=== PATIENT | male | born 1950 ===

== ENCOUNTER 2017-11-15 09:23 | Day surgery (SDC) | payer MEDICARE ==
[2017-11-15 08:08] VITALS: BMI 23.2
[2017-11-15 10:02] LABS: INR 1.1; PROTHROMBIN TIME 12.4 SECONDS (9.7-12.2)
--- NOTE | 2017-11-16 07:04 | HP ---
DATE: 11/15/2017 The patient is a 67-year-old male, who signed against medical advice today from [facility], [place] after he was admitted for pneumonia. The patient's workup included a chest CT scan and echocardiogram. An echocardiographic study was consistent with ischemic cardiomyopathy and chest CT angio revealed 5.1 cm ascending aortic aneurysm. The patient was advised cardiac catheterization, however, he signed against medical advice, and elected to come and have it done as an outpatient. However, during my conversation with him, at the time of clinical consent, the patient was informed that he has to stay overnight after the cardiac catheterization in view of presence of severe aortic stenosis as well as cardiomyopathy and discharging him few hours after cardiac catheterization would not be distended. However, the patient stated that he has to leave because he parked his car somewhere, and that if it stays longer, will be , and the patient was offered to call his friends and family to help him with his issue, however, he states he has nobody that can help him with it, and he has to do with himself, and for that reason, he cannot have the cardiac catheterization today, and he elected to take care of his car first and reschedule his cardiac catheterization procedure. The patient was instructed that if any time he does not feel well, he should call 911. The patient was fully alert, awake, oriented at the time of his decision making. The patient was evaluated thoroughly by me yesterday at [facility], [place]. Clinically, the patient was hemodynamically stable and was not in CHF, and he was chest pain free, was in normal sinus rhythm on the monitor. Best Viramontes MD
== END 2017-11-15 12:30 | disposition home or self-care (01) ==
LOC: C.CATHLAB 09:23
PROVIDERS: ATTEND Specialist
DX: I35.0 Nonrheumatic aortic (valve) stenosis (principal); Z53.09 Procedure and treatment not carried out because of other contraindication

== ENCOUNTER 2017-11-20 00:21 | Inpatient (IN) | payer MEDICARE ==
[2017-11-20 00:21] VITALS: BMI 23.2
[2017-11-20] MEDS ORDERED: Aspirin 325 mg EC Tablets PO STA (00:27)
--- NOTE | 2017-11-20 00:27 | C.PDOC ---
History Of Present Illness 67 year old male presents to the ED c/o worsening SOB that started tonight around at 23:00. Patient was recently admitted to the Hospital last week for pneumonia and CHF. Patient states he is currently taking antibiotics. Patient denies CP, palpitations, weakness, numbness. Patient is speaking in 2-3 word sentences. Time Seen by Provider: 11/20/17 00:26 Chief Complaint (Nursing): Respiratory Distress History Per: Patient History/Exam Limitations: no limitations Onset/Duration Of Symptoms: Hrs Current Symptoms Are (Timing): Worse Quality: "Pain" Exacerbating Factor(s): Exertion, Laying Flat Current Respiratory Medications: See Home Med List Severity: Severe Pain Scale Rating Of: 7 Reports Recently: Seen In ED, Treated By A Physician, Hospitalized (last week for pneumonia and CHF) Recent travel outside of the [place]: No Additional History Per: Patient Past Medical History Reviewed: Historical Data, Nursing Documentation, Vital Signs Vital Signs: Last Vital Signs Temp 98.2 F 11/20/17 01:04 Pulse 100 H 11/20/17 01:04 Resp 20 11/20/17 01:04 BP 111/82 11/20/17 01:04 Pulse Ox 100 11/20/17 01:04 - Medical History PMH: CHF (OCTOBER 2017), Pneumonia (NOV 11 2017) Denies: Chronic Kidney Disease Surgical History: No Surg Hx Family History: States: Unknown Family Hx - Social History Hx Alcohol Use: No Hx Substance Use: No Review Of Systems Constitutional: Negative for: Fever, Chills Eyes: Negative for: Vision Change ENT: Negative for: Throat Pain Cardiovascular: Negative for: Chest Pain Respiratory: Positive for: Cough, Shortness of Breath Gastrointestinal: Negative for: Nausea, Vomiting Genitourinary: Negative for: Dysuria Musculoskeletal: Negative for: Back Pain Skin: Negative for: Rash Neurological: Negative for: Weakness, Numbness, Headache Psych: Positive for: Anxiety Physical Exam - Physical Exam Appears: In Acute Distress Skin: Warm, Dry Head: Normacephalic Eye(s): bilateral: Normal Inspection Oral Mucosa: Moist Neck: Supple Chest: Symmetrical Cardiovascular: Rhythm Regular Respiratory: Decreased Breath Sounds, Rales (diffuse), No Rhonchi, No Wheezing Gastrointestinal/Abdominal: Soft, No Tenderness, No Guarding, No Rebound Back: Normal Inspection Extremity: Pedal Edema (trace), Capillary Refill (< 2 seconds) Extremity: Bilateral: Atraumatic, Normal Color And Temperature Pulses: Left Dorsalis Pedis: Normal, Right Dorsalis Pedis: Normal Neurological/Psych: Oriented x3, Normal Speech Gait: Steady ED Course And Treatment - Laboratory Results Result Diagrams: 11/20/17 00:35 11/20/17 00:35 Progress Note: Plan: - EKG. - VBG. - LAbs. - CXR. - Aspirin 325 mg PO. - Lasix 40 mg PO. - Blood culture Critical Care Time - Critical Care Note Total Time (in mins): 30 Documented critical care: time excludes all time spent performing seperately billable procedures. Disposition Discussed With Dr.: Chris Pandya Comment: accepted the patient onhis service and took over the care 1:39 AM Doctor Will See Patient In The: ED Counseled Patient/Family Regarding: Studies Performed, Diagnosis - Disposition Disposition: HOSPITALIZED Disposition Time: 00:26 Condition: FAIR Forms: [facility] (Uzbek) - Clinical Impression Clinical Impression: Respiratory distress, Acute pulmonary edema - Scribe Statement The provider has reviewed the documentation as recorded by the Scribe Geovani Connor All medical record entries made by the Scribe were at my direction and personally dictated by me. I have reviewed the chart and agree that the record accurately reflects my personal performance of the history, physical exam, medical decision making, and the department course for this patient. I have also personally directed, reviewed, and agree with the discharge instructions and disposition. Decision To Admit - Pt Status Changed To: Hospital Disposition Of: Inpatient - Admit Certification Admit to Inpatient:: After my assessment, the patient will require hospitalization for at least two midnights. This is because of the severity of symptoms shown, intensity of services needed, and/or the medical risk in this patient being treated as an outpatient. - InPatient: Physician Admission Certification: I certify that this patient requires 2 or more midnights of care for the following reason:: After my assessment, the patient will require hospitalization for at least two midnights. This is because of the severity of symptoms shown, intensity of services needed, and/or the medical risk in this patient being treated as an outpatient. - . Bed Request Type: Telemetry Admitting Physician: Chris Pandya Patient Diagnosis: Respiratory distress, Acute pulmonary edema
[2017-11-20 00:35] LABS: VENOUS BLOOD GAS BASE EXCESS -2.4 mmol/L (0.0-2.0); VENOUS BLOOD GAS PCO2 50 mmHg (40-60); VENOUS BLOOD GAS PO2 32 mm/Hg (30-55)
[2017-11-20 00:38] LABS: BASO # 0.2 K/uL (0.0-0.2); BASO % 1.3 % (0.0-2.0); EOS # 0.4 K/uL (0.0-0.7); EOS % 3.5 % (0.0-4.0); LYMPH # 3.7 K/uL (1.0-4.3); LYMPH % 28.7 % (20.0-40.0); MEAN CELL VOLUME 83.7 fL (80.0-94.0); MEAN CORPUSCULAR HEMOGLOBIN 27.7 pg (27.0-31.0); MEAN CORPUSCULAR HGB CONC 33.1 g/dL (33.0-37.0); MEAN PLATELET VOLUME 9.9 fL (7.2-11.7); MONO # 0.7 K/uL (0.0-0.8); MONO % 5.4 % (0.0-10.0); NEUT # 7.9 K/uL (1.8-7.0); NEUT % 61.1 % (50.0-75.0); NRBC % 0.1 % (0.0-2.0); RBC 5.05 Mil/uL (4.40-5.90); RED CELL DISTRIBUTION WIDTH 15.5 % (11.5-14.5); WHITE BLOOD COUNT 12.8 K/uL (4.8-10.8)
[2017-11-20] MEDS ORDERED: Aspirin 325 mg EC Tablets PO ONE (00:39)
[2017-11-20 00:51] LABS: INR 1.1; PROTHROMBIN TIME 12.4 SECONDS (9.7-12.2)
[2017-11-20 00:55] LABS: CALCIUM 9.4 mg/dl (8.6-10.4); GFR AFRICAN-AMERICAN > 60; GFR NON-AFRICAN AMERICAN > 60
[2017-11-20 01:05] LABS: B-TYPE NATRIURETIC PEPTIDE 2740 pg/mL (0-900)
[2017-11-20 01:08] LABS: ALB/GLOB RATIO 1.4 (1.0-2.1); ALBUMIN 4.8 g/dL (3.5-5.0); ALT/SGPT 27 U/L (21-72); AST/SGOT 38 U/L (17-59); BLOOD UREA NITROGEN 22 mg/dL (9-20)
--- NOTE | 2017-11-20 02:26 | CP.PCM.HP ---
<Raul Schmitt - Last Filed: 11/20/17 05:49> History of Present Illness - History of Present Illness History of Present Illness: This is a 67 yo male, originally from [facility], with past medical hx of heart failure with reduced ef, ascending aortic aneurysm, aortic stenois, presenting to ER with chief complaint of sob. SOB has been going on for roughly 3 hrs. This has happened before. He was in [facility] 1 week before with similar complaint and diagnosed with pneumonia and heart failure. He was due for a cardiac cath but he left AMA. He was seen by Dr. Malone. He is with his today. He says he wants to stay. He denies stress test or cardiac cath in the past. He has been taking abx pills but he did not peanut picker any other meds he was supposed to take. He also reports cough. Before this year, he has never had any sob. He has never had a colonoscopy. He denies smoking hx but says he did have a lot of second hand exposure owing to his father. He denies cp, palpitations. He denies fevers, chills. He denies leg swelling. He denies any bleeding. He denies vomiting. He does admit to some diarrhea which he attributes to his abx. He has not been on ever any pumps or inhalers or nebulizers at home. He says he saw PMD Dr. Harmon once very quickly but otherwise he has not been following with a primary. PMD: [facility] None on a regular basis Code status: full code PMH: aortic stenosis, ascending aortic aneurysm, heart failure with reduced ef PSH: sx to right hand Home meds: levaquin 500 mg po daily Allergies: NKDA FH: mother- living- DM -father- - pneumonia Social hx: does not smoke. social drinker. denies drug use. Born in [facility]. Retired. Worked in [employer] Insurance: medicare part A Present on Admission - Present on Admission Any Indicators Present on Admission: No History of DVT/PE: No History of Uncontrolled Diabetes: No Urinary Catheter: No Decubitus Ulcer Present: No Review of Systems - Constitutional Constitutional: absent: Chills, Fever - EENT Eyes: absent: Blurred Vision, Change in Vision Nose/Mouth/Throat: absent: Post Nasal Drip, Sore Throat, Neck Pain - Cardiovascular Cardiovascular: Dyspnea. absent: Chest Pain, Chest Pain at Rest, Diaphoresis - Respiratory Respiratory: Cough, Dyspnea. absent: Hemoptysis - Gastrointestinal Gastrointestinal: Diarrhea. absent: Nausea, Vomiting - Genitourinary Genitourinary: absent: Change in Urinary Stream, Difficulty Urinating - Musculoskeletal Musculoskeletal: absent: Back Pain, Numbness, Tingling - Integumentary Integumentary: absent: Bleeding Lesions, Changing Lesions - Neurological Neurological: absent: Abnormal Gait, Abnormal Movements, Tingling, Weakness - Psychiatric Psychiatric: absent: Anxiety, Depression - Endocrine Endocrine: absent: Palpitations, Polyuria - Hematologic/Lymphatic Hematologic: absent: Easy Bleeding, Easy Bruising Past Patient History - Infectious Disease Hx of Infectious Diseases: None - Tetanus Immunizations Tetanus Immunization: Unknown - Past Medical History & Family History Past Medical History?: Yes Pertinent Family History: DM, PNA in family - Past Social History Smoking Status: Never Smoked Chewing Tobacco Use: No Cigar Use: No Alcohol: Social Drugs: Denies Home Situation {Lives}: With Family Domestic Violence: Negative - CARDIAC Hx Congestive Heart Failure: Yes (OCTOBER 2017) - PULMONARY Hx Pneumonia: Yes (NOV 11 2017) - NEUROLOGICAL Hx Neurological Disorder: No - HEENT Hx HEENT Problems: Yes (SEASONAL ALLERGIES) - RENAL Hx Chronic Kidney Disease: No - ENDOCRINE/METABOLIC Hx Endocrine Disorders: No - HEMATOLOGICAL/ONCOLOGICAL Hx Blood Disorders: No - INTEGUMENTARY Hx Dermatological Problems: No - MUSCULOSKELETAL/RHEUMATOLOGICAL Hx Musculoskeletal Disorders: No Hx Falls: No - GASTROINTESTINAL Hx Gastrointestinal Disorders: No - GENITOURINARY/GYNECOLOGICAL Hx Genitourinary Disorders: No - PSYCHIATRIC Hx Substance Use: No - SURGICAL HISTORY Hx Surgeries: Yes Hx Musculoskeletal Surgery: Yes (HAND SX) - ANESTHESIA Hx Anesthesia: Yes Hx Anesthesia Reactions: No Hx Malignant Hyperthermia: No Meds Allergies/Adverse Reactions: Allergies Allergy/AdvReac Type Severity Reaction Status Date / Time apple Allergy Intermediate SWELLING Verified 11/20/17 00:27 pear Allergy Intermediate SWELLING Verified 11/20/17 00:27 strawberry Allergy Intermediate SWELLING Verified 11/20/17 00:27 grape Allergy SWELLING Verified 11/20/17 00:27 seasonal Allergy ITCHING Uncoded 11/20/17 00:27 Physical Exam - Constitutional Appears: Non-toxic, No Acute Distress - Head Exam Head Exam: ATRAUMATIC, NORMAL INSPECTION, NORMOCEPHALIC - Eye Exam Eye Exam: EOMI - ENT Exam ENT Exam: Mucous Membranes Moist - Respiratory Exam Respiratory Exam: Rales. absent: Respiratory Distress - Cardiovascular Exam Cardiovascular Exam: REGULAR RHYTHM, +S1, +S2, Systolic Murmur - GI/Abdominal Exam GI & Abdominal Exam: Normal Bowel Sounds, Soft. absent: Tenderness - Extremities Exam Extremities exam: Positive for: full ROM, normal inspection - Back Exam Back exam: NORMAL INSPECTION - Neurological Exam Neurological exam: Alert, CN II-XII Intact, Oriented x3 - Psychiatric Exam Psychiatric exam: Normal Affect, Normal Mood - Skin Skin Exam: Dry, Intact, Normal Color, Warm Results - Vital Signs Recent Vital Signs: Last Vital Signs Temp 98.2 F 11/20/17 01:04 Pulse 100 H 11/20/17 01:04 Resp 20 11/20/17 01:04 BP 111/82 11/20/17 01:04 Pulse Ox 100 11/20/17 01:04 - Labs Result Diagrams: 11/20/17 00:35 11/20/17 00:35 Labs: Laboratory Results - last 24 hr 11/20/17 11/20/17 11/20/17 00:30 00:35 00:35 WBC 12.8 H RBC 5.05 Hgb 14.0 Hct 42.3 MCV 83.7 MCH 27.7 MCHC 33.1 RDW 15.5 H Plt Count 345 MPV 9.9 Neut % (Auto) 61.1 Lymph % (Auto) 28.7 [place] % (Auto) 5.4 Eos % (Auto) 3.5 Baso % (Auto) 1.3 Neut # (Auto) 7.9 H Lymph # (Auto) 3.7 [place] # (Auto) 0.7 Eos # (Auto) 0.4 Baso # (Auto) 0.2 PT 12.4 H INR 1.1 APTT 30 pO2 32 VBG pH 7.30 L VBG pCO2 50 VBG HCO3 21.9 VBG Total CO2 26.1 VBG O2 Sat (Calc) 54.5 VBG Base Excess -2.4 L VBG Potassium 4.2 Sodium 138.0 Chloride 102.0 Glucose 208 H Lactate 2.2 H Potassium Carbon Dioxide Anion Gap BUN Creatinine Est GFR ( Amer) Est GFR (Non-Af Amer) Random Glucose Calcium Total Bilirubin AST ALT Alkaline Phosphatase Troponin I NT-Pro-B Natriuret Pep Total Protein Albumin Globulin Albumin/Globulin Ratio Venous Blood Potassium 4.2 11/20/17 00:35 WBC RBC Hgb Hct MCV MCH MCHC RDW Plt Count MPV Neut % (Auto) Lymph % (Auto) [place] % (Auto) Eos % (Auto) Baso % (Auto) Neut # (Auto) Lymph # (Auto) [place] # (Auto) Eos # (Auto) Baso # (Auto) PT INR APTT pO2 VBG pH VBG pCO2 VBG HCO3 VBG Total CO2 VBG O2 Sat (Calc) VBG Base Excess VBG Potassium Sodium 139 Chloride 103 Glucose Lactate Potassium 5.2 Carbon Dioxide 22 Anion Gap 20 BUN 22 H Creatinine 1.1 Est GFR ( Amer) > 60 Est GFR (Non-Af Amer) > 60 Random Glucose 201 H Calcium 9.4 Total Bilirubin 1.1 AST 38 ALT 27 Alkaline Phosphatase 67 Troponin I 0.0220 NT-Pro-B Natriuret Pep 2740 H Total Protein 8.1 Albumin 4.8 Globulin 3.3 Albumin/Globulin Ratio 1.4 Venous Blood Potassium Assessment & Plan - Assessment and Plan (Free Text) Assessment: This is a 67 yo male, originally from [facility], with heart failure with reduced ejection fraction, ascending aortic aneurysm, mitral regurg, htn with 1. Acute pulmonary edema CXR shows acute pulmonary edema -trops x 3 -BNP elevated -lasix 40 mg IV bid -cardio consult. Dr. Malone. recs appreciated -likely needs cardiac cath -asa 81 mg po daily -VBG shows lactate 2.2 and ph 7.30 -repeat lactate -pt condition: fair 2. Aortic stenosis -coreg 3.125 mg po bid- holding for now because of aortic stenosis, symptomatic and sob -[facility] -recent echo: October 2017: severe aortic stenosis; moderate mitral regurgitation; EF 30-35 percent with impaired LV function 3. hx of ascending aortic aneurysm -cardio consult. Dr. Malone. recs appreciated. -continue to monitor 4. hx of htn -continue lisinopril 5 mg po daily 5. hx of CAP -restart rocephin 1 g IV daily -restart azithromycin 500 mg iv daily -blood cultures pending -pt afebrile -procal pending -does have some leukocytosis 5. GI/DVT ppx -protonix 40 mg iv daily -lovenox 40 mg sc daily -heart healthy diet discussed with Dr. Pandya <Chris Pandya - Last Filed: 11/20/17 06:22> Results - Vital Signs Recent Vital Signs: Last Vital Signs Temp 98.1 F 11/20/17 06:09 Pulse 106 H 11/20/17 06:09 Resp 16 11/20/17 06:09 BP 94/64 L 11/20/17 06:09 Pulse Ox 99 11/20/17 06:09 - Labs Result Diagrams: 11/20/17 06:13 11/20/17 00:35 Labs: Laboratory Results - last 24 hr 11/20/17 11/20/17 11/20/17 00:30 00:35 00:35 WBC 12.8 H RBC 5.05 Hgb 14.0 Hct 42.3 MCV 83.7 MCH 27.7 MCHC 33.1 RDW 15.5 H Plt Count 345 MPV 9.9 Neut % (Auto) 61.1 Lymph % (Auto) 28.7 [place] % (Auto) 5.4 Eos % (Auto) 3.5 Baso % (Auto) 1.3 Neut # (Auto) 7.9 H Lymph # (Auto) 3.7 [place] # (Auto) 0.7 Eos # (Auto) 0.4 Baso # (Auto) 0.2 PT 12.4 H INR 1.1 APTT 30 pO2 32 VBG pH 7.30 L VBG pCO2 50 VBG HCO3 21.9 VBG Total CO2 26.1 VBG O2 Sat (Calc) 54.5 VBG Base Excess -2.4 L VBG Potassium 4.2 Sodium 138.0 Chloride 102.0 Glucose 208 H Lactate 2.2 H Potassium Carbon Dioxide Anion Gap BUN Creatinine Est GFR ( Amer) Est GFR (Non-Af Amer) Random Glucose Calcium Total Bilirubin AST ALT Alkaline Phosphatase Troponin I NT-Pro-B Natriuret Pep Total Protein Albumin Globulin Albumin/Globulin Ratio Venous Blood Potassium 4.2 11/20/17 11/20/17 00:35 06:13 WBC 10.7 RBC 4.81 Hgb 13.4 Hct 39.6 MCV 82.2 MCH 27.9 MCHC 34.0 RDW 15.4 H Plt Count 267 MPV 9.7 Neut % (Auto) 78.0 H Lymph % (Auto) 13.6 L [place] % (Auto) 6.5 Eos % (Auto) 1.1 Baso % (Auto) 0.8 Neut # (Auto) 8.4 H Lymph # (Auto) 1.5 [place] # (Auto) 0.7 Eos # (Auto) 0.1 Baso # (Auto) 0.1 PT INR APTT pO2 VBG pH VBG pCO2 VBG HCO3 VBG Total CO2 VBG O2 Sat (Calc) VBG Base Excess VBG Potassium Sodium 139 Chloride 103 Glucose Lactate Potassium 5.2 Carbon Dioxide 22 Anion Gap 20 BUN 22 H Creatinine 1.1 Est GFR ( Amer) > 60 Est GFR (Non-Af Amer) > 60 Random Glucose 201 H Calcium 9.4 Total Bilirubin 1.1 AST 38 ALT 27 Alkaline Phosphatase 67 Troponin I 0.0220 NT-Pro-B Natriuret Pep 2740 H Total Protein 8.1 Albumin 4.8 Globulin 3.3 Albumin/Globulin Ratio 1.4 Venous Blood Potassium Assessment & Plan - Date & Time Date: 11/20/17 (I have seen and examined the patient. I agree with the findings and plan of care as documented by Dr. Schmitt. Patient with acute pulmonary edema. Previously treated for pneumonia. Left AMA before entirely treated. Rocephin and Azithromycin. Lasix IV. Also with history of aortic aneurysm. Consult to Cardio. Monitor for acute changes.) Time: 06:20 Attending/Attestation - Attestation I have personally seen and examined this patient.: Yes I have fully participated in the care of the patient.: Yes I have reviewed all pertinent clinical information: Yes
[2017-11-20 06:16] LABS: BASO # 0.1 K/uL (0.0-0.2); BASO % 0.8 % (0.0-2.0); EOS # 0.1 K/uL (0.0-0.7); EOS % 1.1 % (0.0-4.0); HEMOGLOBIN 13.4 g/dL (12.0-18.0); LYMPH # 1.5 K/uL (1.0-4.3); LYMPH % 13.6 % (20.0-40.0); MEAN CELL VOLUME 82.2 fL (80.0-94.0); MEAN CORPUSCULAR HEMOGLOBIN 27.9 pg (27.0-31.0); MEAN PLATELET VOLUME 9.7 fL (7.2-11.7); MONO # 0.7 K/uL (0.0-0.8); MONO % 6.5 % (0.0-10.0); NEUT # 8.4 K/uL (1.8-7.0); RBC 4.81 Mil/uL (4.40-5.90); RED CELL DISTRIBUTION WIDTH 15.4 % (11.5-14.5); WHITE BLOOD COUNT 10.7 K/uL (4.8-10.8)
[2017-11-20 06:49] LABS: CK-MB 1.45 ng/mL (0.0-3.38)
--- NOTE | 2017-11-20 08:37 | CP.PCM.PN ---
Objective - Vital Signs/Intake and Output Vital Signs (last 24 hours): Temp Pulse Resp BP Pulse Ox 97.7 F 71 14 85/54 L 95 11/20/17 08:00 11/20/17 08:10 11/20/17 08:05 11/20/17 08:06 11/20/17 08:05 Intake and Output: 11/20/17 11/20/17 06:59 18:59 Intake Total 50 0 Output Total 2009 -1959 0 - Medications Medications: Current Medications Aspirin (Aspirin Chewable) 81 mg PO DAILY [facility] Enoxaparin Sodium (Lovenox) 40 mg SC DAILY [facility] Furosemide (Lasix) 40 mg IVP BID [facility] Heparin Sodium (Porcine) (Heparin) 5,000 units SC Q8 [facility] Ceftriaxone Sodium 1 gm/ (Sodium Chloride) 100 mls @ 100 mls/hr IVPB DAILY [facility] PRN Reason: Protocol Azithromycin 500 mg/ Sodium (Chloride) 250 mls @ 250 mls/hr IVPB DAILY [facility] PRN Reason: Protocol Lisinopril (Zestril) 2.5 mg PO DAILY [facility] Pantoprazole Sodium (Protonix Inj) 40 mg IVP DAILY [facility] - Labs Labs: 11/20/17 06:13 PT 12.4 SECONDS (9.7-12.2) H 11/20/17 00:35 INR 1.1 11/20/17 00:35 APTT 30 SECONDS (21-34) 11/20/17 00:35
--- NOTE | 2017-11-20 08:51 | RAD ---
PROCEDURE: CHEST RADIOGRAPH, 1 VIEW HISTORY: SOB COMPARISON: None available. FINDINGS: LUNGS: Clear. PLEURA: Trace left pleural effusion not excluded. None is seen at the right. No pneumothorax bilaterally. CARDIOVASCULAR: Mildly prominent cardiac silhouette is appreciated though an element of technical magnification is likely in effect to some degree. Moderate pulmonary vascular congestion appreciated. OSSEOUS STRUCTURES: No significant abnormalities. VISUALIZED UPPER ABDOMEN: Normal. OTHER FINDINGS: None. IMPRESSION: Active CHF apparent. Trace left pleural effusion noted.
[2017-11-20 09:15] LABS: ALB/GLOB RATIO 1.3 (1.0-2.1); ALBUMIN 3.9 g/dL (3.5-5.0); ALT/SGPT 33 U/L (21-72); AST/SGOT 39 U/L (17-59); BLOOD UREA NITROGEN 23 mg/dL (9-20); CALCIUM 9.7 mg/dl (8.6-10.4); GFR AFRICAN-AMERICAN > 60; GFR NON-AFRICAN AMERICAN > 60
[2017-11-20] MEDS: Enoxaparin 40 mg Syringe SC SCH (09:41)
[2017-11-20] MEDS: Azithromycin 500 MG in Sodium Chloride 0.9% 250 ML IVPB SCH (09:56)
--- NOTE | 2017-11-20 11:54 | CP.PCM.PCO ---
Physician Communication Note - Physician Communication Note Physician Communication Note: Patient has been transferred to [facility]'s Service. Thank you.
[2017-11-20 12:34] LABS: CK-MB 1.41 ng/mL (0.0-3.38); TROPONIN I 0.093 ng/mL (0.00-0.120)
--- NOTE | 2017-11-20 22:36 | CP.PCM.HP ---
History of Present Illness - History of Present Illness History of Present Illness: This is a 67 yo male, originally from [facility], with past medical hx of heart failure with reduced ef, ascending aortic aneurysm, aortic stenois, presenting to ER with chief complaint of sob. SOB has been going on for roughly 3 hrs. This has happened before. He was in [facility] 1 week before with similar complaint and diagnosed with pneumonia and heart failure. He was due for a cardiac cath but he left AMA. He was seen by Dr. Malone. He is with his today. He says he wants to stay. He denies stress test or cardiac cath in the past. He has been taking abx pills but he did not supervisor opening and picking any other meds he was supposed to take. He also reports cough. Before this year, he has never had any sob. He has never had a colonoscopy. He denies smoking hx but says he did have a lot of second hand exposure owing to his father. He denies cp, palpitations. He denies fevers, chills. He denies leg swelling. He denies any bleeding. He denies vomiting. He does admit to some diarrhea which he attributes to his abx. He has not been on ever any pumps or inhalers or nebulizers at home. He says he saw PMD Dr. Harmon once very quickly but otherwise he has not been following with a primary. PMD: [facility] None on a regular basis Code status: full code PMH: aortic stenosis, ascending aortic aneurysm, heart failure with reduced ef PSH: sx to right hand Home meds: levaquin 500 mg po daily Allergies: NKDA Past Patient History - Infectious Disease Hx of Infectious Diseases: None - Tetanus Immunizations Tetanus Immunization: Unknown - Past Medical History & Family History Past Medical History?: Yes - Past Social History Smoking Status: Never Smoked - CARDIAC Hx Cardiac Disorders: Yes Hx Congestive Heart Failure: Yes (OCTOBER 2017) - PULMONARY Hx Respiratory Disorders: Yes Hx Pneumonia: Yes (NOV 11 2017) - NEUROLOGICAL Hx Neurological Disorder: No - HEENT Hx HEENT Problems: Yes (SEASONAL ALLERGIES) - RENAL Hx Chronic Kidney Disease: No - ENDOCRINE/METABOLIC Hx Endocrine Disorders: No - HEMATOLOGICAL/ONCOLOGICAL Hx Blood Disorders: No - INTEGUMENTARY Hx Dermatological Problems: No - MUSCULOSKELETAL/RHEUMATOLOGICAL Hx Musculoskeletal Disorders: No Hx Falls: No - GASTROINTESTINAL Hx Gastrointestinal Disorders: No - GENITOURINARY/GYNECOLOGICAL Hx Genitourinary Disorders: No - PSYCHIATRIC Hx Psychophysiologic Disorder: No Hx Substance Use: No - SURGICAL HISTORY Hx Surgeries: Yes Hx Musculoskeletal Surgery: Yes (HAND SX) - ANESTHESIA Hx Anesthesia: Yes Hx Anesthesia Reactions: No Hx Malignant Hyperthermia: No Has any member of the family had a problem w/ anesthesia?: No Meds Allergies/Adverse Reactions: Allergies Allergy/AdvReac Type Severity Reaction Status Date / Time apple Allergy Intermediate SWELLING Verified 11/20/17 00:27 pear Allergy Intermediate SWELLING Verified 11/20/17 00:27 strawberry Allergy Intermediate SWELLING Verified 11/20/17 00:27 grape Allergy SWELLING Verified 11/20/17 00:27 seasonal Allergy ITCHING Uncoded 11/20/17 00:27 Results - Vital Signs Recent Vital Signs: Last Vital Signs Temp 98.2 F 11/20/17 15:27 Pulse 79 11/20/17 19:00 Resp 16 11/20/17 19:00 BP 93/61 L 11/20/17 18:30 Pulse Ox 99 11/20/17 19:00 - Labs Result Diagrams: 11/20/17 06:13 11/20/17 06:12 Labs: Laboratory Results - last 24 hr 11/20/17 11/20/17 11/20/17 00:30 00:35 00:35 WBC 12.8 H RBC 5.05 Hgb 14.0 Hct 42.3 MCV 83.7 MCH 27.7 MCHC 33.1 RDW 15.5 H Plt Count 345 MPV 9.9 Neut % (Auto) 61.1 Lymph % (Auto) 28.7 [place] % (Auto) 5.4 Eos % (Auto) 3.5 Baso % (Auto) 1.3 Neut # (Auto) 7.9 H Lymph # (Auto) 3.7 [place] # (Auto) 0.7 Eos # (Auto) 0.4 Baso # (Auto) 0.2 PT 12.4 H INR 1.1 APTT 30 pO2 32 VBG pH 7.30 L VBG pCO2 50 VBG HCO3 21.9 VBG Total CO2 26.1 VBG O2 Sat (Calc) 54.5 VBG Base Excess -2.4 L VBG Potassium 4.2 Sodium 138.0 Chloride 102.0 Glucose 208 H Lactate 2.2 H Potassium Carbon Dioxide Anion Gap BUN Creatinine Est GFR ( Amer) Est GFR (Non-Af Amer) Random Glucose Hemoglobin A1c Lactic Acid Calcium Total Bilirubin AST ALT Alkaline Phosphatase Total Creatine Kinase CK-MB (Mass) Troponin I NT-Pro-B Natriuret Pep Total Protein Albumin Globulin Albumin/Globulin Ratio Triglycerides Cholesterol LDL Cholesterol Direct HDL Cholesterol Procalcitonin Free T4 TSH 3rd Generation Venous Blood Potassium 4.2 11/20/17 11/20/17 11/20/17 00:35 06:12 06:12 WBC RBC Hgb Hct MCV MCH MCHC RDW Plt Count MPV Neut % (Auto) Lymph % (Auto) [place] % (Auto) Eos % (Auto) Baso % (Auto) Neut # (Auto) Lymph # (Auto) [place] # (Auto) Eos # (Auto) Baso # (Auto) PT INR APTT pO2 VBG pH VBG pCO2 VBG HCO3 VBG Total CO2 VBG O2 Sat (Calc) VBG Base Excess VBG Potassium Sodium 139 Cancelled Chloride 103 Cancelled Glucose Lactate Potassium 5.2 Cancelled Carbon Dioxide 22 Cancelled Anion Gap 20 Cancelled BUN 22 H Cancelled Creatinine 1.1 Est GFR ( Amer) > 60 Cancelled Est GFR (Non-Af Amer) > 60 Cancelled Random Glucose 201 H Cancelled Hemoglobin A1c 5.6 Lactic Acid Calcium 9.4 Cancelled Total Bilirubin 1.1 Cancelled AST 38 Cancelled ALT 27 Cancelled Alkaline Phosphatase 67 Cancelled Total Creatine Kinase CK-MB (Mass) Troponin I 0.0220 NT-Pro-B Natriuret Pep 2740 H Total Protein 8.1 Cancelled Albumin 4.8 Cancelled Globulin 3.3 Cancelled Albumin/Globulin Ratio 1.4 Cancelled Triglycerides 66 Cholesterol 132 LDL Cholesterol Direct 86 HDL Cholesterol 36 Procalcitonin Free T4 TSH 3rd Generation 2.24 Venous Blood Potassium 11/20/17 11/20/17 11/20/17 06:12 06:12 06:12 WBC RBC Hgb Hct MCV MCH MCHC RDW Plt Count MPV Neut % (Auto) Lymph % (Auto) [place] % (Auto) Eos % (Auto) Baso % (Auto) Neut # (Auto) Lymph # (Auto) [place] # (Auto) Eos # (Auto) Baso # (Auto) PT INR APTT pO2 VBG pH VBG pCO2 VBG HCO3 VBG Total CO2 VBG O2 Sat (Calc) VBG Base Excess VBG Potassium Sodium Chloride Glucose Lactate Potassium Carbon Dioxide Anion Gap BUN Creatinine Est GFR ( Amer) Est GFR (Non-Af Amer) Random Glucose Hemoglobin A1c Lactic Acid 0.9 Calcium Total Bilirubin AST ALT Alkaline Phosphatase Total Creatine Kinase CK-MB (Mass) Troponin I NT-Pro-B Natriuret Pep Total Protein Albumin Globulin Albumin/Globulin Ratio Triglycerides Cholesterol LDL Cholesterol Direct HDL Cholesterol Procalcitonin 0.13 L Free T4 1.25 TSH 3rd Generation Venous Blood Potassium 11/20/17 11/20/17 11/20/17 06:12 06:13 12:03 WBC 10.7 RBC 4.81 Hgb 13.4 Hct 39.6 MCV 82.2 MCH 27.9 MCHC 34.0 RDW 15.4 H Plt Count 267 MPV 9.7 Neut % (Auto) 78.0 H Lymph % (Auto) 13.6 L [place] % (Auto) 6.5 Eos % (Auto) 1.1 Baso % (Auto) 0.8 Neut # (Auto) 8.4 H Lymph # (Auto) 1.5 [place] # (Auto) 0.7 Eos # (Auto) 0.1 Baso # (Auto) 0.1 PT INR APTT pO2 VBG pH VBG pCO2 VBG HCO3 VBG Total CO2 VBG O2 Sat (Calc) VBG Base Excess VBG Potassium Sodium 140 Chloride 102 Glucose Lactate Potassium 4.7 Carbon Dioxide 28 Anion Gap 15 BUN 23 H Creatinine 1.0 Est GFR ( Amer) > 60 Est GFR (Non-Af Amer) > 60 Random Glucose 104 Hemoglobin A1c Lactic Acid Calcium 9.7 Total Bilirubin 1.0 AST 39 ALT 33 Alkaline Phosphatase 50 Total Creatine Kinase 49 L 46 L CK-MB (Mass) 1.45 1.41 Troponin I 0.0560 0.0930 NT-Pro-B Natriuret Pep Total Protein 6.9 Albumin 3.9 Globulin 3.0 Albumin/Globulin Ratio 1.3 Triglycerides Cholesterol LDL Cholesterol Direct HDL Cholesterol Procalcitonin Free T4 TSH 3rd Generation Venous Blood Potassium
--- NOTE | 2017-11-20 23:35 | CON ---
DATE: REASON FOR CONSULTATION: Congestive heart failure, aortic stenosis, and ascending aortic aneurysm. HISTORY OF PRESENT ILLNESS: The patient is 67 years old male who was admitted recently to [facility] and was diagnosed with severe aortic stenosis, ischemic cardiomyopathy, and 5.1 cm ascending aortic aneurysm, and the patient was advised cardiac catheterization. He signed against medical advice from [facility], and presented on 11/15, i.e., 5 days ago for elective cardiac catheterization. 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 It was explained to the patient that he can attempt to have anyone help him with it but he insisted that he has to go, to take up his car and come back some other day for the cardiac catheterization. The patient was let go. He was at that time clinically stable, and he was scheduled for Monday, which is tomorrow for cardiac catheterization; however, he presented yesterday because of shortness of breath. The patient denies any chest or back discomfort. SOCIAL HISTORY: Nonsmoker. and lives with his . MEDICATIONS: Aspirin 81 mg once a day, Zithromax 500 mg intravenously daily, Rocephin 1 gm intravenously daily, Lasix 40 mg intravenously daily, Lovenox 40 mg subcutaneously once a day, Zestril 2.5 mg once a day, Pepcid 20 mg p.o. twice a day. REVIEW OF SYSTEMS: The patient continues to have cough. He denies any fever or chills. The patient denies any back pain. He denies any dizziness or syncope. PHYSICAL EXAMINATION: GENERAL: The patient is an elderly male who does not appear to be in acute distress. VITAL SIGNS: On admission, blood pressure 126/80 with heart rate of 135, temperature 98.7, respirations 28. HEENT: Normocephalic. CHEST: Bibasilar rhonchi. HEART: S1 and S2, regular. Grade 4/6 ejection systolic murmur over left sternal border. ABDOMEN: Soft. EXTREMITIES: No edema. LABORATORY DATA: CBC - WBC 10.7, hemoglobin 13.4, hematocrit 39.6, platelet count 267,000. SMA-7: Sodium 140, potassium 4.7, chloride 102, CO2 of 28, glucose 104, BUN 23, creatinine 1. Two sets of troponins are negative. ProBNP is 2740. Echocardiographic study on 11/12 revealed mildly dilated left ventricle, anterior and lateral wall hypokinesis, ejection fraction was estimated in the range of 30% to 35%, severe valvular aortic stenosis with a calculated valve area of 0.35 sq cm and moderate to severe mitral insufficiency. Chest CT angio on 11/11 revealed mild bilateral pleural effusion with mild bilateral lower lobe compression atelectasis. Small ill-defined opacities in the right upper lobe, possibly infectious, 5 mm left upper lobe nodule, 5.1 ascending thoracic aortic aneurysm. Today's chest x-ray revealed diffuse bilateral alveolar infiltrate suggestive of acute pulmonary edema, however, underlying bilateral pneumonia could not be excluded. ASSESSMENT: 1. Acute systolic heart failure. 2. Critical aortic stenosis and severe mitral insufficiency. 3. A 5.1 cm ascending aortic aneurysm. RECOMMENDATIONS: Continue current IV Lasix 20 mg daily, continue IV Zithromax and IV Rocephin. Continue aspirin 81 mg once a day, Zestril 2.5 mg once a day. The patient is not a suitable candidate for beta tavia therapy at least at this time. Start enalapril 2.5 mg orally daily. Cardiac catheterization is considered for tomorrow if the patient remains stable and is able to lay flat for the procedure. In the meantime, I will obtain 2 sets of blood cultures. Best Viramontes MD
[2017-11-21 06:43] LABS: BASO # 0.1 K/uL (0.0-0.2); BASO % 0.7 % (0.0-2.0); EOS # 0.4 K/uL (0.0-0.7); EOS % 4.5 % (0.0-4.0); HEMOGLOBIN 12.9 g/dL (12.0-18.0); LYMPH # 1.5 K/uL (1.0-4.3); MEAN CELL VOLUME 81.7 fL (80.0-94.0); MEAN CORPUSCULAR HEMOGLOBIN 28.2 pg (27.0-31.0); MEAN CORPUSCULAR HGB CONC 34.6 g/dL (33.0-37.0); MEAN PLATELET VOLUME 10.2 fL (7.2-11.7); MONO # 0.6 K/uL (0.0-0.8); MONO % 7.8 % (0.0-10.0); NEUT # 5.4 K/uL (1.8-7.0); NRBC % 0.1 % (0.0-2.0); RBC 4.59 Mil/uL (4.40-5.90); RED CELL DISTRIBUTION WIDTH 15.4 % (11.5-14.5); WHITE BLOOD COUNT 7.9 K/uL (4.8-10.8)
[2017-11-21 06:50] LABS: INR 1.1; PROTHROMBIN TIME 12.5 SECONDS (9.7-12.2)
[2017-11-21 07:01] LABS: ALB/GLOB RATIO 1.4 (1.0-2.1); ALBUMIN 3.7 g/dL (3.5-5.0); ALT/SGPT 18 U/L (21-72); AST/SGOT 20 U/L (17-59); BLOOD UREA NITROGEN 25 mg/dL (9-20); CALCIUM 9.2 mg/dl (8.6-10.4); GFR AFRICAN-AMERICAN > 60; GFR NON-AFRICAN AMERICAN > 60
[2017-11-21] MEDS: Enoxaparin 40 mg Syringe SC SCH (09:06)
[2017-11-21] MEDS: Azithromycin 500 MG in Sodium Chloride 0.9% 250 ML IVPB SCH (09:13)
[2017-11-21] MEDS ORDERED: Lidocaine 2% MPF (5 ml) Inj ONE (10:48)
[2017-11-21] MEDS ORDERED: Midazolam 2 MG/2 ML VIAL ONE (10:48)
[2017-11-21] MEDS ORDERED: Iodixanol 320 MG/ML 100 ML BOTTLE IV ONE (10:52)
[2017-11-21] MEDS ORDERED: Sodium Chloride 0.9% 500 ML IV ONE (18:45)
[2017-11-21 20:33] VITALS: TEMP 99.1
[2017-11-21] MEDS ORDERED: DOPamine 400mg/250ml D5W 400 MG/250 ML BAG IV PRN (21:15)
[2017-11-21] MEDS ORDERED: Vancomycin 1 gm/NS 200 ml 1 GM/200 ML BAG IVPB SCH (22:00)
[2017-11-21 22:05] VITALS: RESP 14; O2SAT 100
--- NOTE | 2017-11-21 23:05 | CP.PCM.PN ---
Subjective - Date & Time of Evaluation Date of Evaluation: 11/21/17 Time of Evaluation: 19:00 - Subjective Subjective: PT SEEN AND EXAMINED Objective - Vital Signs/Intake and Output Vital Signs (last 24 hours): Temp Pulse Resp BP Pulse Ox 99.1 F 93 H 14 101/69 100 11/21/17 20:11 11/21/17 21:52 11/21/17 21:52 11/21/17 21:52 11/21/17 21:52 Intake and Output: 11/21/17 11/22/17 18:59 06:59 Intake Total 710 690 Output Total 600 400 Balance 110 290 - Medications Medications: Current Medications Aspirin (Aspirin Chewable) 81 mg PO DAILY COUNT INCLUDES THE [facility] Last Admin: 11/21/17 14:35 Dose: 81 mg Enoxaparin Sodium (Lovenox) 40 mg SC DAILY COUNT INCLUDES THE [facility] Last Admin: 11/21/17 09:06 Dose: 40 mg Famotidine (Pepcid) 20 mg PO BID COUNT INCLUDES THE [facility] Last Admin: 11/21/17 17:15 Dose: 20 mg Ceftriaxone Sodium 1 gm/ (Sodium Chloride) 100 mls @ 100 mls/hr IVPB DAILY COUNT INCLUDES THE [facility] PRN Reason: Protocol Last Admin: 11/21/17 09:06 Dose: 100 mls/hr Azithromycin 500 mg/ Sodium (Chloride) 250 mls @ 250 mls/hr IVPB DAILY COUNT INCLUDES THE [facility] PRN Reason: Protocol Last Admin: 11/21/17 09:13 Dose: 250 mls/hr Sodium Chloride (Sodium Chloride 0.9%) 500 mls @ 60 mls/hr IV .Q8H20M ONE Stop: 11/22/17 03:04 Last Admin: 11/21/17 18:52 Dose: 60 mls/hr Dopamine HCl/Dextrose (Dopamine 400mg/250ml D5w) 400 mg in 250 mls @ 5.062 mls/ hr IV .Q24H PRN; Protocol; 2 MCG/KG/MIN PRN Reason: TITRATE PER MD ORDER Vancomycin/Sodium Chloride (Vancomycin 1 Gm/Ns 200 Ml) 1 gm in 200 mls @ 133 mls/hr IVPB Q12H COUNT INCLUDES THE [facility] PRN Reason: Protocol Stop: 11/26/17 22:01 Last Admin: 11/21/17 22:01 Dose: 133 mls/hr Rosuvastatin Calcium (Crestor) 5 mg PO [facility] Last Admin: 11/21/17 22:09 Dose: 5 mg - Labs Labs: 11/21/17 06:35 11/21/17 06:36 PT 12.5 SECONDS (9.7-12.2) H 11/21/17 06:36 INR 1.1 11/21/17 06:36 APTT 29 SECONDS (21-34) 11/21/17 06:36
--- NOTE | 2017-11-21 23:51 | CARDCATH ---
PROCEDURE DATE: SUBJECTIVE: The patient Is a 67-year-old male with a history of hypertension who was recently diagnosed with ischemic cardiomyopathy, severe aortic stenosis as well as a 5.1 cm ascending aortic aneurysm. Cardiac catheterization was recommended. The procedures and its risks were fully explained to the patient who understood and agreed for the procedure. PROCEDURE: Left and right coronary angiography was performed with 6-Jordanian JL4 and JR4 diagnostic catheters. Aortogram was performed with a 6-Jordanian pigtail catheter. The aortic valve was crossed with a wire; however, neither a 6 nor 5-Jordanian catheter could be advanced across the aortic valve. Left ventriculogram was performed with a manual injection because the power injector was not functioning in the crime laboratory analyst. The patient tolerated the procedure well without any complication. ANGIOGRAPHIC FINDINGS: Selective injection of the left coronary artery revealed the left main to be a normal vessel. The left main bifurcated into medium-sized LAD and medium-sized circumflex artery. The entire left coronary artery circulation was angiographically unremarkable. Selective injection of the right coronary artery revealed a medium-sized dominant vessel that had 80% to 90% eccentric stenosis in its proximal segment. The right coronary artery was angiographically unremarkable. Aortography was performed in the MICHELLE projection revealed heavily concentric aortic valve and aortic sinuses. There was ascending aortic aneurysm and with mild aortic insufficiency. CONCLUSION: 1. An 80% to 90% proximal right coronary artery stenosis. 2. Cardiomyopathy as per echo study. 3. Severe aortic stenosis with mild aortic insufficiency. 4. A 5.1 cm ascending aortic aneurysm. RECOMMENDATIONS: The patient will require a combined right coronary artery bypass surgery with porcine aortic valve with aortic root graft. The patient elected to go to Hospital; however, he has not provided the surgeon's name. The patient was offered surgery at [facility] but he has not made up his mind yet. In the meantime, the patient would be observed in ICU. Best Viramontes MD
[2017-11-22 00:32] VITALS: BP 86/60; PULSE 91
--- NOTE | 2017-11-22 02:32 | PN ---
DATE: ____ After the completion of the procedure, the patient could not provide any input from cardiothoracic surgeon; however, he requested that he can go with Dr. Gilman at [facility]. The patient was kept on the observation in the ICU, and the case was discussed with Dr. Gilman who is willing to see the patient. The patient became borderline hypertensive. Then, 500 mL of IV fluid was started at 60 mL/hour, and subsequently dopamine was started at 2 mcg per minute, even though I was just told that the preliminary report of blood cultures positive for gram-positive cocci in clusters. The patient in this condition needs to be transferred to tertiary care facility, and I requested an urgent ____ transfer to the ICU at [facility] where he has a bed available under the service of Dr. Gilman. According to the nurse, the patient wants to go as an outpatient; however, I instructed the nurse that if the patient only leaves [facility] by signing against medical advice, which would be a second time he will sign against medical advice. Best Viramontes MD
== END 2017-11-21 23:40 | disposition short-term general hospital (02) | DRG 287 ==
LOC: C.ER 00:21 → C.9E 01:37 → C.9I 04:57
PROVIDERS: ADMIT Family Medicine; ATTEND Internal Medicine
PROC: 4A023N7 Measurement of Cardiac Sampling and Pressure, Left Heart, Percutaneous Approach (ICD-10-PCS; principal; 2017-11-21)
PROC: B211YZZ Fluoroscopy of Multiple Coronary Arteries using Other Contrast (ICD-10-PCS; 2017-11-21)
PROC: B215YZZ Fluoroscopy of Left Heart using Other Contrast (ICD-10-PCS; 2017-11-21)
PROC: B310YZZ Fluoroscopy of Thoracic Aorta using Other Contrast (ICD-10-PCS; 2017-11-21)
DX: I11.0 Hypertensive heart disease with heart failure (principal); R78.81 Bacteremia; I50.23 Acute on chronic systolic (congestive) heart failure; D72.829 Elevated white blood cell count, unspecified; I25.10 Atherosclerotic heart disease of native coronary artery without angina pectoris; I25.5 Ischemic cardiomyopathy; I71.2 Thoracic aortic aneurysm, without rupture; I08.0 Rheumatic disorders of both mitral and aortic valves